=== PATIENT | female | born 1970 | race Caucasian/White ===

== ENCOUNTER → 2016-10-10 | Outpatient (CLI) | payer OTHER ==
[2016-10-10 16:20] LABS: Basophils % (A) 1 %; CH 28.8; CHCM 32.7; Eosinophils # (A) 0.2 k/uL (0-0.7); Eosinophils % (A) 2 %; HCT 44.5 % (34.0-46.0); HDW 2.68; HGB 14.3 gm/dL (11.4-16.0); Luc # (Auto) 0.12; Luc % (Auto) 1; Lymphocytes # (A) 2.4 k/uL (1.0-4.8); Lymphocytes % (A) 26 %; MCH 28.5 pg (25.0-35.0); MCHC 32.2 g/dL (31.0-37.0); MCV 88.6 fL (80.0-100.0); Mean Platelet Volume 8.1; Monocytes # (A) 0.4 k/uL (0-1.0); Monocytes % (A) 4 %; Neutrophils # (A) 6.2 k/uL (1.3-7.7); Neutrophils % (A) 67 %; RBC 5.02 m/uL (3.80-5.40); RDW 14.1 % (11.5-15.5); WBC 9.2 k/uL (3.8-10.6); WBC (Perox) 9.37
== END | disposition home or self-care (01) ==
LOC: LABWHC1 15:49
PROVIDERS: ATTEND Orthopaedic Surgery
DX: Z01.812 Encounter for preprocedural laboratory examination (principal); M75.01 Adhesive capsulitis of right shoulder
CPT/HCPCS: 36415; 85025

== ENCOUNTER 2016-10-25 09:22 | Day surgery (SDC) | payer BC, OTHER ==
[2016-10-22 15:11] VITALS: BMI 43.0
--- NOTE | 2016-10-24 17:12 | HP ---
DATE OF ADMISSION: CHIEF COMPLAINT: Right shoulder pain and stiffness. 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 She denies any specific injury. She is having diffuse pain along with significant weakness and stiffness. She is having night symptoms. She has been taking Motrin with partial temporary relief. She has a history of left shoulder adhesive capsulitis. PAST MEDICAL HISTORY: Significant for hypertension and kidney stones. Past surgical history significant for left shoulder manipulation, cholecystectomy and section. FAMILY HISTORY: Significant for heart disease. SOCIAL HISTORY: Significant for previous tobacco use, however, she quit in 1992. CURRENT MEDICATIONS: Ibuprofen. SHE NOTES ALLERGIES TO REGLAN AND CODEINE. Sixteen-point review of systems otherwise reviewed and is noncontributory. On examination, the patient is approximately 5 foot 7, 276 pounds of endomorphic habitus. HEENT exam is nonfocal. Neck is supple. On examination of her right shoulder, she is tender about the anterior subacromial space. She has moderate subacromial crepitus. Active range of motion, forward elevation of 115 degrees, external rotation with arm at side 25 degrees, internal rotation to L5. Passively I am able to forward elevate the right shoulder to 135, motor strength is 5-/5 for external rotation with the arm at the side and 5/5 for abduction. Impingement, Neer test are positive. Her distal neurovascular exam otherwise appears be intact in the right upper extremity. X-rays of the right shoulder obtained in the office to include AP and scapular outlet view show type II acromion with maintained humeral head to acromial distance. IMPRESSION: 1. Right shoulder adhesive capsulitis. 2. Increased body mass index. RECOMMENDATIONS: I talked to the patient regarding her treatment options. At this point, she opts to proceed with manipulation under anesthesia with a subacromial cortisone injection. We will likely perform that as an outpatient procedure utilizing IV sedation. The risks and benefits are discussed at length in layman's terms.
[~2016-10-25 09:22] MED LIST: CLINDAMYCIN 900 MG in DEXTROSE 5% IN WATER 50 ML IVPB ONE; DEXAMETHASONE SOD PHOSPHATE 10 MG/ML 1 ML VIAL IV ONE; LACTATED RINGERS 1,000 ML IV SCH; MIDAZOLAM 2 MG/2 ML VIAL IV PRN; SCOPOLAMINE 1.5MG/72HR PATCH TRANSDERM ONE
[2016-10-25 09:43] VITALS: TEMP 97.9
[2016-10-25] MEDS: ONDANSETRON 4 MG/2 ML VIAL IVP ONE ×2 (09:56→11:37)
[2016-10-25] MEDS ORDERED: PROPOFOL 10 MG/ML 20 ML VIAL IV ONE (11:13)
[2016-10-25] MEDS ORDERED: LIDOCAINE 1% INJ 10MG/ML (20 ML MDV) ONE (11:13)
[2016-10-25] MEDS ORDERED: BUPIVACAIN-EPI 0.25%-1:200,000 30 ML VIAL INTRAARTIC ONE (11:15)
[2016-10-25] MEDS ORDERED: methylPREDNISolone ACETATE 80 MG/ML 1 ML VIAL MISCELLANE ONE (11:15)
[2016-10-25] MEDS ORDERED: fentaNYL (PF) 50 MCG/ML 2 ML AMP IV ONE ×2 (11:28)
[2016-10-25] MEDS: HYDROmorphone 1 MG/ML 1 ML SYRINGE IVP PRN ×3 (11:28→12:05)
[2016-10-25] MEDS ORDERED: MIDAZOLAM 2 MG/2 ML VIAL IVP ONE ×2 (11:29)
[2016-10-25] MEDS: MEPERIDINE 50 MG/ML SYRINGE IVP ONE ×2 (11:30→11:38)
--- NOTE | 2016-10-25 11:39 | P.OP ---
Date of Procedure: 10/25/16 Preoperative Diagnosis: Right shoulder adhesive capsulitis Postoperative Diagnosis: Same Procedure(s) Performed: Manipulation under anesthesia right shoulder with subacromial cortisone injection Anesthesia: MAC Surgeon: Skyler Lopez Estimated Blood Loss (ml): 0 Pathology: none sent Condition: stable Disposition: PACU Indications for Procedure: The patient's a 46-year-old female presents with progressive right shoulder pain and stiffness despite conservative measures. She has a history of left shoulder adhesive capsulitis. A discussion of the risks and benefits of manipulation under anesthesia with a subacromial cortisone injection was made with patient. She opted to proceed with with this. Specific risks of this procedure to include fracture, dislocation, tendon rupture, possible recurrence of stiffness and need for subsequent procedures was discussed. Informed consent was obtained. Operative Findings: Significant adhesions Description of Procedure: The patient was brought to the recovery room, and after induction of IV sedation I then manipulated her right shoulder. Initially with her arm at her side obtaining full external rotation. Moderate adhesions were encountered. I then obtained full forward elevation. Again there were moderate adhesions. I felt I had adequate release at this point. The posterior shoulder was prepped with ChloraPrep. 80 mg of Depo-Medrol along with 5 mL of quarter percent plain Marcaine was injected to the posterior subacromial space. The patient was then monitored until fully awake. No complications were incurred.
[2016-10-25] MEDS ORDERED: KETOROLAC 30 MG/ML 1 ML VIAL IVP ONE (11:50)
[2016-10-25] MEDS ORDERED: HYDROmorphone 1 MG/ML 1 ML SYRINGE IVP ONE ×2 (12:24→12:29)
[2016-10-25 14:29] VITALS: BP 148/83; PULSE 85; RESP 18
== END 2016-10-25 15:39 | disposition home or self-care (01) ==
LOC: OR 09:22
PROVIDERS: ATTEND Orthopaedic Surgery
DX: M75.01 Adhesive capsulitis of right shoulder (principal); I10 Essential (primary) hypertension; Z79.899 Other long term (current) drug therapy; Z88.5 Allergy status to narcotic agent; Z88.0 Allergy status to penicillin; Z88.8 Allergy status to other drugs, medicaments and biological substances
CPT/HCPCS: 23700; 81025; 20610; J2250; J1040; J1100; J2175; J2405; J2001; J3010; J1885; J1170; J2704

== ENCOUNTER 2017-09-11 16:09 | Emergency (ER) | payer OTHER ==
[2017-09-11] MEDS ORDERED: ONDANSETRON ODT 8 MG TAB.RAPDIS PO STA (16:45)
[2017-09-11] MEDS ORDERED: SODIUM CHLORIDE 0.9% 1,000 ML IV STA (16:45)
[2017-09-11] MEDS ORDERED: HYDROmorphone 1 MG/ML 1 ML SYRINGE IVP STA (16:45)
--- NOTE | 2017-09-11 16:49 | ED ---
General Adult HPI - General Chief complaint: Abdominal Pain Stated complaint: Abd Pain Time Seen by Provider: 09/11/17 16:38 Source: patient, RN notes reviewed Mode of arrival: ambulatory Limitations: no limitations - History of Present Illness Initial comments: Patient 46-year-old female who presents emergency room today with chief complaint of symptoms of diarrhea with abdominal pain. Patient does admit that she's had diarrhea for the last one. States that she had antibiotics of ciprofloxacin and Keflex for a urinary tract infection. She states the symptoms of UTI have resolved but she's had diarrhea since taking these antibiotics. She states her sister was recently diagnosed with C. diff. She states she did see her family doctor today and was prescribed Flagyl. She states she began having abdominal discomfort earlier today as well. She states located in the left upper quadrant. Does admit history of pancreatitis. He states that they're unsure the cause of the paper tenderness in the past. She states she has had a cholecystectomy. She states this does feel different than typical pancreatitis that she's had. She doesn't that she's felt nauseated. He was pain on the right lower side of the belly. States stool somewhat formed at this time as she has been taking Imodium. States she was able give her doctor a stool sample. Denies any other complaints or symptoms. Patient denies any recent fever, chills, shortness of breath, chest pain, numbness or tingling , dysuria or hematuria, constipation, headaches or visual changes, or any other complaints. - Related Data Home Medications Medication Instructions Recorded Confirmed Cholecalciferol [Vitamin D3] 1,000 unit PO DAILY 04/30/15 09/11/17 Calcium Carbonate/Vitamin D3 1 tab PO BID 09/11/17 09/11/17 [Calcium 600-Vit D3 400 Caplet] Enalapril [Vasotec] 10 mg PO DAILY 09/11/17 09/11/17 Previous Rx's Medication Instructions Recorded Ondansetron Odt [Zofran ODT] 4 mg PO Q8HR PRN #20 tab 09/11/17 Allergies Allergy/AdvReac Type Severity Reaction Status Date / Time amoxicillin Allergy Itching Verified 09/11/17 16:56 ciprofloxacin [From Cipro] Allergy Swelling Verified 09/11/17 16:56 codeine Allergy Rash/Hives Verified 09/11/17 16:56 metoclopramide HCl Allergy Rash/Hives Verified 09/11/17 16:56 [[facility] [place] Review of Systems ROS Statement: Those systems with pertinent positive or pertinent negative responses have been documented in the HPI. ROS Other: All systems not noted in ROS Statement are negative. Past Medical History Past Medical History: Hypertension Additional Past Medical History / Comment(s): pancreatitis. KIDNEY STONES History of Any Multi-Drug Resistant Organisms: None Reported Past Surgical History: Section, Cholecystectomy, Orthopedic Surgery, Uterine Ablation Additional Past Surgical History / Comment(s): KIDNEY STONES REMOVED X4. LT SHOULDER MANIPULATION Past Anesthesia/Blood Transfusion Reactions: Motion Sickness, Postoperative Nausea & Vomiting (PONV) Past Psychological History: No Psychological Hx Reported Smoking Status: Former smoker Past Alcohol Use History: None Reported Past Drug Use History: None Reported - Past Family History Sister(s) Family Medical History: Cancer General Exam - General Exam Comments Initial Comments: General: The patient is awake and alert, in no distress, and does not appear acutely ill. Eye: Pupils are equal, round and reactive to light, extra-ocular movements are intact. No nystagmus. There is normal conjunctiva bilaterally. No signs of icterus. Ears, nose, mouth and throat: There are moist mucous membranes and no oral lesions. Neck: The neck is supple, there is no tenderness or JVD. Cardiovascular: There is a regular rate and rhythm. No murmur, rub or gallop is appreciated. Respiratory: Lungs are clear to auscultation, respirations are non-labored, breath sounds are equal. No wheezes, stridor, rales, or rhonchi. Gastrointestinal: Soft, non-distended, non-tender abdomen without masses or organomegaly noted. There is no rebound or guarding present. No CVA tenderness. Bowel sounds are unremarkable. Musculoskeletal: Normal ROM, no tenderness. Strength 5/5. Sensation intact. Pulses equal bilaterally 2+. Neurological: A&O x 3. CN II-XII intact, There are no obvious motor or sensory deficits. Coordination appears grossly intact. Speech is normal. Skin: Skin is warm and dry and no rashes or lesions are noted. Psychiatric: Cooperative, appropriate mood & affect, normal judgment. Limitations: no limitations Course Vital Signs 09/11/17 16:15 Temperature 98.4 F Pulse Rate 82 Respiratory 16 Rate Blood Pressure 191/82 O2 Sat by Pulse 95 Oximetry Medical Decision Making - Medical Decision Making Patient's CT of the abdomen reviewed and is negative. Patient's labs been reviewed are negative. Results were discussed with the patient. She does have C. diff test ending with her family doctor unable to give us a sample here in emergency room. Patient did start Flagyl earlier today from the family doctor. Patient tolerating fluids. Patient will be discharged from nausea with patient use. Advised to increase appetite with brat diet and make sure that she is eating with her antibiotic. Advised to follow-up family doctor return here to the emergency room symptoms increase worsen - Lab Data Result diagrams: 09/11/17 17:00 09/11/17 17:00 Lab Results 09/11/17 09/11/17 09/11/17 Range/Units 16:56 16:56 17:00 WBC (3.8-10.6) k/uL RBC (3.80-5.40) m/uL Hgb (11.4-16.0) gm/dL Hct (34.0-46.0) % MCV (80.0-100.0) fL MCH (25.0-35.0) pg MCHC (31.0-37.0) g/dL RDW (11.5-15.5) % Plt Count (150-450) k/uL Neutrophils % % Lymphocytes % % Monocytes % % Eosinophils % % Basophils % % Neutrophils # (1.3-7.7) k/uL Lymphocytes # (1.0-4.8) k/uL Monocytes # (0-1.0) k/uL Eosinophils # (0-0.7) k/uL Basophils # (0-0.2) k/uL Sodium 141 (137-145) mmol/L Potassium 3.7 (3.5-5.1) mmol/L Chloride 103 (98-107) mmol/L Carbon Dioxide 26 (22-30) mmol/L Anion Gap 12 mmol/L BUN 8 (7-17) mg/dL Creatinine 0.60 (0.52-1.04) mg/dL Est GFR (MDRD) Af Amer >60 (>60 ml/min/1.73 sqM) Est GFR (MDRD) Non-Af >60 (>60 ml/min/1.73 sqM) Glucose 111 H (74-99) mg/dL Calcium 9.4 (8.4-10.2) mg/dL Total Bilirubin 0.4 (0.2-1.3) mg/dL AST 22 (14-36) U/L ALT 38 (9-52) U/L Alkaline Phosphatase 65 (38-126) U/L Total Protein 7.1 (6.3-8.2) g/dL Albumin 4.1 (3.5-5.0) g/dL Amylase 38 (30-110) U/L Lipase 79 (23-300) U/L Urine Color Light Yellow Urine Appearance Clear (Clear) Urine pH 5.5 (5.0-8.0) Ur Specific [place] 1.003 (1.001-1.035) Urine Protein Negative (Negative) Urine Glucose (UA) Negative (Negative) Urine Ketones Negative (Negative) Urine Blood Negative (Negative) Urine Nitrite Negative (Negative) Urine Bilirubin Negative (Negative) Urine Urobilinogen <2.0 (<2.0) mg/dL Ur Leukocyte Esterase Negative (Negative) Urine HCG, Qual Not Detected (Not Detectd) 09/11/17 Range/Units 17:00 WBC 9.1 (3.8-10.6) k/uL RBC 4.81 (3.80-5.40) m/uL Hgb 13.6 (11.4-16.0) gm/dL Hct 42.6 (34.0-46.0) % MCV 88.4 (80.0-100.0) fL MCH 28.3 (25.0-35.0) pg MCHC 32.0 (31.0-37.0) g/dL RDW 15.5 (11.5-15.5) % Plt Count 176 (150-450) k/uL Neutrophils % 72 % Lymphocytes % 21 % Monocytes % 4 % Eosinophils % 2 % Basophils % 1 % Neutrophils # 6.6 (1.3-7.7) k/uL Lymphocytes # 1.9 (1.0-4.8) k/uL Monocytes # 0.4 (0-1.0) k/uL Eosinophils # 0.2 (0-0.7) k/uL Basophils # 0.0 (0-0.2) k/uL Sodium (137-145) mmol/L Potassium (3.5-5.1) mmol/L Chloride (98-107) mmol/L Carbon Dioxide (22-30) mmol/L Anion Gap mmol/L BUN (7-17) mg/dL Creatinine (0.52-1.04) mg/dL Est GFR (MDRD) Af Amer (>60 ml/min/1.73 sqM) Est GFR (MDRD) Non-Af (>60 ml/min/1.73 sqM) Glucose (74-99) mg/dL Calcium (8.4-10.2) mg/dL Total Bilirubin (0.2-1.3) mg/dL AST (14-36) U/L ALT (9-52) U/L Alkaline Phosphatase (38-126) U/L Total Protein (6.3-8.2) g/dL Albumin (3.5-5.0) g/dL Amylase (30-110) U/L Lipase (23-300) U/L Urine Color Urine Appearance (Clear) Urine pH (5.0-8.0) Ur Specific [place] (1.001-1.035) Urine Protein (Negative) Urine Glucose (UA) (Negative) Urine Ketones (Negative) Urine Blood (Negative) Urine Nitrite (Negative) Urine Bilirubin (Negative) Urine Urobilinogen (<2.0) mg/dL Ur Leukocyte Esterase (Negative) Urine HCG, Qual (Not Detectd) Disposition Clinical Impression: Acute diarrhea, Abdominal pain Disposition: HOME SELF-CARE Condition: Good Instructions: Abdominal Pain (ED) Additional Instructions: Please use medication as discussed. Please follow-up with family doctor in the next 2 days of symptoms have not improved. Please return to emergency room if the symptoms increase or worsen or for any other concerns. Prescriptions: Ondansetron Odt [Zofran ODT] 4 mg PO Q8HR PRN #20 tab PRN Reason: Nausea Referrals: Zain Mitchell MD [Primary Care Provider] - 1-2 days Time of Disposition: 19:16
[2017-09-11 17:05] LABS: Appearance,Urine Clear (Clear); Bilirubin,Urine Negative (Negative); Blood,Urine Negative (Negative); Color,Urine Light Yellow; Glucose,Urine (UA) Negative (Negative); Ketones,Urine Negative (Negative); Leukocyte Esterase,Urine Negative (Negative); Nitrite,Urine Negative (Negative); PH, Urine 5.5 (5.0-8.0); Protein,Urine Negative (Negative); Specific Gravity,Urine 1.003 (1.001-1.035); Urobilinogen,Urine <2.0 mg/dL (<2.0)
[2017-09-11 17:12] LABS: Basophils % (A) 1 %; Eosinophils # (A) 0.2 k/uL (0-0.7); Eosinophils % (A) 2 %; HCT 42.6 % (34.0-46.0); HGB 13.6 gm/dL (11.4-16.0); Lymphocytes # (A) 1.9 k/uL (1.0-4.8); Lymphocytes % (A) 21 %; MCH 28.3 pg (25.0-35.0); MCV 88.4 fL (80.0-100.0); Mean Platelet Volume 9.3; Monocytes # (A) 0.4 k/uL (0-1.0); Monocytes % (A) 4 %; Neutrophils # (A) 6.6 k/uL (1.3-7.7); Neutrophils % (A) 72 %; Platelet Count 176 k/uL (150-450); RBC 4.81 m/uL (3.80-5.40); RDW 15.5 % (11.5-15.5); WBC 9.1 k/uL (3.8-10.6)
[2017-09-11 17:20] LABS: ALT 38 U/L (9-52); AST 22 U/L (14-36); Albumin 4.1 g/dL (3.5-5.0); Alkaline Phosphatase 65 U/L (38-126); Amylase 38 U/L (30-110); Anion Gap 12 mmol/L; Blood Urea Nitrogen 8 mg/dL (7-17); Calcium 9.4 mg/dL (8.4-10.2); Carbon Dioxide 26 mmol/L (22-30); Chloride 103 mmol/L (98-107); Glucose 111 mg/dL (74-99); Lipase 79 U/L (23-300); Potassium 3.7 mmol/L (3.5-5.1); Sodium 141 mmol/L (137-145); Total Bilirubin 0.4 mg/dL (0.2-1.3); Total Protein 7.1 g/dL (6.3-8.2)
[2017-09-11] MEDS ORDERED: RX INFO: IV CONTRAST WAS GIVEN 1 EACH MISC MISCELLANE PRN (17:39)
--- NOTE | 2017-09-11 17:45 | XR ---
EXAMINATION TYPE: XR KUB DATE OF EXAM: 09/11/2017 CLINICAL HISTORY: Pain and bloating with diarrhea for 1 month TECHNIQUE: 3 upright views of the abdomen and pelvis were obtained. COMPARISON: 04/30/2015 FINDINGS: Scattered gas is seen in non-distended small bowel loops. Gas and fecal material is seen in non-distended colon. There is no visceromegaly, pneumoperitoneum, pneumatosis, or abnormal calcif ication. The visualized lung bases and pleural spaces and cardiac silhouette are unremarkable, and t he osseous structures are intact. IMPRESSION: NO ACUTE RADIOGRAPHIC PROCESS.
--- NOTE | 2017-09-11 19:07 | CT ---
EXAMINATION TYPE: CT abdomen pelvis w con DATE OF EXAM: 09/11/2017 COMPARISON: 04/30/2015 HISTORY: Diarrhea x 1 month, generalized abdominal pain. CT DLP: 4166.00 mGycm. Automated exposure control for dose reduction was used. TECHNIQUE: Helical acquisition of images was performed from the lung bases through the pelvis. CONTRAST: Performed without Oral Contrast and with IV Contrast, patient injected with 100 mL of Omnip aque 300. FINDINGS: LUNG BASES: No significant abnormality is appreciated. LIVER/GB: No significant abnormality is appreciated. PANCREAS: No significant abnormality is seen. SPLEEN: No significant abnormality is seen. ADRENALS: No significant abnormality is seen. KIDNEYS: No significant abnormality is seen. Nonobstructing 2 mm calcification noted in the upper pole of the left kidney. Multifocal simple-appearing subcentimeter renal cysts are noted within the left kidney, with a domina nt 2.5 cm simple cyst in the lower pole left kidney. PERITONEAL CAVITY OF THE ABDOMEN AND PELVIS: No abnormal gas or fluid collections. EXTRAPERITONEAL SPACES OF THE ABDOMEN AND PELVIS: Negative. ABDOMINAL ADENOPATHY: None visualized REPRODUCTIVE ORGANS: No significant abnormality is seen URINARY BLADDER: No significant abnormality is seen. PELVIC ADENOPATHY: None visualized. OSSEOUS STRUCTURES: No significant abnormality is seen. BOWEL: No significant abnormality is seen. Specifically, the colon and the small bowel have normal a ppearance. VASCULATURE: Unremarkable. IMPRESSION: NO ACUTE PROCESS.
[2017-09-11] MEDS ORDERED: ONDANSETRON 4 MG/2 ML VIAL IVP STA (19:27)
[2017-09-11 19:40] VITALS: BP 125/56; PULSE 69; RESP 18; TEMP 98
== END 2017-09-11 19:39 | disposition home or self-care (01) ==
LOC: EC 16:09
DX: R19.7 Diarrhea, unspecified (principal); R11.0 Nausea; I10 Essential (primary) hypertension; Z87.442 Personal history of urinary calculi; Z90.49 Acquired absence of other specified parts of digestive tract; Z98.890 Other specified postprocedural states; Z87.19 Personal history of other diseases of the digestive system; Z87.891 Personal history of nicotine dependence; Z88.0 Allergy status to penicillin; Z88.1 Allergy status to other antibiotic agents; Z88.5 Allergy status to narcotic agent; Z88.8 Allergy status to other drugs, medicaments and biological substances; Z79.899 Other long term (current) drug therapy
CPT/HCPCS: 99284 ×2; 96374 ×2; 96375 ×2; 96361 ×3; 36415; 80053; 82150; 83690; 85025; 81003; 81025; 74000; 74177; J2405; J1170; Q9967

== ENCOUNTER 2018-03-24 11:14 | Emergency (ER) | payer OTHER ==
[2018-03-24 11:20] VITALS: TEMP 98.1
[2018-03-24] MEDS ORDERED: SODIUM CHLORIDE 0.9% 1,000 ML IV STA (11:37)
[2018-03-24] MEDS ORDERED: KETOROLAC 30 MG/ML 1 ML VIAL IVP STA (11:37)
--- NOTE | 2018-03-24 11:42 | ED ---
Chest Pain HPI - General Chief Complaint: Chest Pain Stated Complaint: chest pain Time Seen by Provider: 03/24/18 11:28 Source: patient, RN notes reviewed Mode of arrival: wheelchair Limitations: no limitations - History of Present Illness Initial Comments: This is a 47-year-old female with a history of hypertension is being treated with medication states she had the onset this morning of left-sided shoulder pain it radiates to the front of her chest. Its worse is 8 and 9/10 severity when at rest units 5-6/10. She states it occurred after she tried to reach for her cat and picked it up. She has no known history of heart or lung disease nonsmoker there is a family history of heart disease however. He voices no other complaints she's had no fevers chills cough or phlegm production. She is a nonsmoker MD Complaint: chest pain - Related Data Home Medications Medication Instructions Recorded Confirmed Cholecalciferol [Vitamin D3] 1,000 unit PO DAILY 04/30/15 03/24/18 Enalapril [Vasotec] 10 mg PO DAILY 09/11/17 03/24/18 Ibuprofen [Motrin Ib] 600 mg PO Q6H PRN 03/24/18 03/24/18 Allergies Allergy/AdvReac Type Severity Reaction Status Date / Time amoxicillin Allergy Itching Verified 03/24/18 11:37 ciprofloxacin [From Cipro] Allergy Swelling Verified 03/24/18 11:37 codeine Allergy Rash/Hives Verified 03/24/18 11:37 metoclopramide HCl Allergy Rash/Hives Verified 03/24/18 11:37 [From Reglan] Review of Systems ROS Statement: Those systems with pertinent positive or pertinent negative responses have been documented in the HPI. ROS Other: All systems not noted in ROS Statement are negative. EKG Findings - EKG Results: EKG: interpreted by ERMAncelmo, sinus rhythm (Sinus rhythm rate is 74. Interval 158 QRS duration 80 daily since QTC of 394/[address]-T wave changes.) Past Medical History Past Medical History: Hypertension Additional Past Medical History / Comment(s): pancreatitis. KIDNEY STONES History of Any Multi-Drug Resistant Organisms: None Reported Past Surgical History: Section, Cholecystectomy, Orthopedic Surgery, Uterine Ablation Additional Past Surgical History / Comment(s): KIDNEY STONES REMOVED X4. LT SHOULDER MANIPULATION Past Anesthesia/Blood Transfusion Reactions: Motion Sickness, Postoperative Nausea & Vomiting (PONV) Past Psychological History: No Psychological Hx Reported Smoking Status: Former smoker Past Alcohol Use History: None Reported Past Drug Use History: None Reported - Past Family History Sister(s) Family Medical History: Cancer General Exam - General Exam Comments Initial Comments: This is a well-developed well-nourished awake alert oriented 3 female Limitations: no limitations General appearance: alert, anxious Head exam: Present: atraumatic, normocephalic, normal inspection Eye exam: Present: normal appearance, PERRL, EOMI. Absent: scleral icterus, conjunctival injection, periorbital swelling ENT exam: Present: normal exam, mucous membranes moist Neck exam: Present: normal inspection. Absent: tenderness, meningismus, lymphadenopathy Respiratory exam: Present: normal lung sounds bilaterally, chest wall tenderness (Reproducible tenderness palpation along the left costal sternal margin and costochondral margin. No step-off or crepitation). Absent: respiratory distress, wheezes, rales, rhonchi, stridor Cardiovascular Exam: Present: regular rate, normal rhythm, normal heart sounds. Absent: systolic murmur, diastolic murmur, rubs, gallop, clicks GI/Abdominal exam: Present: soft, normal bowel sounds. Absent: distended, tenderness, guarding, rebound, rigid Extremities exam: Present: normal inspection, full ROM, normal capillary refill. Absent: tenderness, pedal edema, joint swelling, calf tenderness Back exam: Present: normal inspection, full ROM, tenderness, paraspinal tenderness (Response muscle tenderness on the left only reproducible to palpation also along the left rhomboid muscles.). Absent: CVA tenderness (R), CVA tenderness (L) Neurological exam: Present: alert, oriented X3, CN II-XII intact Psychiatric exam: Present: normal affect, normal mood Skin exam: Present: warm, dry, intact, normal color. Absent: rash Course Vital Signs 03/24/18 11:18 Temperature 98.1 F Pulse Rate 87 Respiratory 18 Rate Blood Pressure 139/84 O2 Sat by Pulse 99 Oximetry Disposition Referrals: Zain Mitchell MD [Primary Care Provider] - 1-2 days
[2018-03-24 11:59] LABS: Basophils % (A) 0 %; Eosinophils # (A) 0.2 k/uL (0-0.7); Eosinophils % (A) 2 %; HCT 43.6 % (34.0-46.0); HGB 14.4 gm/dL (11.4-16.0); Lymphocytes # (A) 1.4 k/uL (1.0-4.8); Lymphocytes % (A) 17 %; MCH 28.2 pg (25.0-35.0); MCHC 32.9 g/dL (31.0-37.0); MCV 85.6 fL (80.0-100.0); Mean Platelet Volume 8.3; Monocytes # (A) 0.3 k/uL (0-1.0); Monocytes % (A) 4 %; Neutrophils # (A) 6.5 k/uL (1.3-7.7); Neutrophils % (A) 77 %; Platelet Count 173 k/uL (150-450); RBC 5.09 m/uL (3.80-5.40); RDW 14.5 % (11.5-15.5); WBC 8.4 k/uL (3.8-10.6)
[2018-03-24 12:09] LABS: ALT 26 U/L (9-52); AST 20 U/L (14-36); Albumin 4.1 g/dL (3.5-5.0); Alkaline Phosphatase 73 U/L (38-126); Amylase 51 U/L (30-110); Anion Gap 13 mmol/L; Blood Urea Nitrogen 10 mg/dL (7-17); Calcium 9.6 mg/dL (8.4-10.2); Carbon Dioxide 22 mmol/L (22-30); Chloride 104 mmol/L (98-107); Glucose 128 mg/dL (74-99); Lipase 88 U/L (23-300); Magnesium 1.9 mg/dL (1.6-2.3); Potassium 4.4 mmol/L (3.5-5.1); Sodium 139 mmol/L (137-145); Total Bilirubin 0.4 mg/dL (0.2-1.3); Total Protein 7.1 g/dL (6.3-8.2)
[2018-03-24 12:11] LABS: D-Dimer 0.42 mg/L FEU (<0.60); INR 0.9 (<1.2); Partial Thromboplastin Time 22.9 sec (22.0-30.0); Prothrombin Time 9.4 sec (9.0-12.0)
--- NOTE | 2018-03-24 12:32 | XR ---
EXAMINATION TYPE: XR chest 2V DATE OF EXAM: 03/24/2018 COMPARISON: 04/30/2015 HISTORY: Left shoulder pain and chest pain TECHNIQUE: Frontal and lateral views of the chest are obtained. FINDINGS: There is no focal air space opacity, pleural effusion, or pneumothorax seen. The cardiac silhouette size is within normal limits. The osseous structures are intact. IMPRESSION: No acute cardiopulmonary process.
[2018-03-24 12:35] LABS: Creatine Kinase 25 U/L (30-135)
[2018-03-24 12:48] LABS: Creatine Kinase MB <0.2 ng/mL (0.0-2.4); Troponin I <0.012 ng/mL (0.000-0.034)
[2018-03-24 13:36] VITALS: BP 122/61; PULSE 69; RESP 16
== END 2018-03-24 15:15 | disposition home or self-care (01) ==
LOC: EC 11:14
DX: M94.0 Chondrocostal junction syndrome [Tietze] (principal); M62.838 Other muscle spasm; I10 Essential (primary) hypertension; Z87.891 Personal history of nicotine dependence; Z79.899 Other long term (current) drug therapy; Z88.0 Allergy status to penicillin; Z88.1 Allergy status to other antibiotic agents; Z88.5 Allergy status to narcotic agent; Z88.8 Allergy status to other drugs, medicaments and biological substances; Z98.890 Other specified postprocedural states; Z82.49 Family history of ischemic heart disease and other diseases of the circulatory system
CPT/HCPCS: 99285; 36415; 96374; 96375 ×2; 93005; 85379; 80053; 82150; 82550; 82553; 83690; 83735; 84484; 85025; 85610; 85730; 71046; J1885

== ENCOUNTER → 2020-04-19 | Outpatient (CLI) | payer OTHER ==
--- NOTE | 2020-04-19 11:44 | US ---
EXAMINATION TYPE: US extremity nonvasc mass LT DATE OF EXAM: 04/19/2020 COMPARISON: NONE CLINICAL HISTORY: R22.9 Soft tissue swelling. Palpable lump x 1 year on left anterior mid forearm. P atient states she thinks she hit the area and it has been there and sore since then. Area of concern scanned. Superficial echogenic nonvascular lesion visualized - 1.3 x 1.5 x 0.6 cm. Second area seen while scanning inferior to area of concern= 0.6 x 0.7 x 0.3 cm. IMPRESSION: 1. 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 A second adjacent area is present. Ot her etiologies including liposarcoma are not excluded. Consider MRI soft tissues with contrast for ad ditional evaluation.
== END | disposition home or self-care (01) ==
LOC: RADUSWWP 07:39
PROVIDERS: ATTEND Pediatrics
DX: R22.9 Localized swelling, mass and lump, unspecified (principal)

== ENCOUNTER → 2020-05-24 | Outpatient (CLI) | payer OTHER ==
--- NOTE | 2020-05-25 03:55 | MR ---
EXAMINATION TYPE: MR forearm LT wo/w con DATE OF EXAM: 05/24/2020 COMPARISON: None HISTORY: Lump on radial aspect of lt forearm x 1 year CONTRAST: Standard multiplanar, multisequence MRI departmental protocol utilizing 13.5 mL intravenous Gadavist gadolinium contrast. The muscle structures of the forearm appear intact. There is no evidence of soft tissue mass involvin g the vessels. Radius and ulna appear intact. I see no bony destructive process. There is a somewhat rounded 14 mm focus of increased signal on the T1 and T2 images in the subcutaneo us fat over the lateral aspect of the mid shaft of the radius. This is in the area marked as a palpab le mass. This appears to enhance slightly. There is a similar focus also on the medial aspect of the forearm in the subcutaneous fat that measures 9 x 4 mm. There is a third focus of similar signal ramon acteristics that measures 6 mm in the lateral aspect of the mid forearm that is more distal to the la rger lesion. These also show mild enhancement. There is a fourth similar lesion that is on the anterior lateral aspect of the forearm similar signal characteristics and measures 6 mm in diameter. IMPRESSION: Multiple subcutaneous small masses in the forearm show mild enhancement. These lie within the subcuta neous fat. 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
== END | disposition home or self-care (01) ==
LOC: RADMRIMAIN 10:32
PROVIDERS: ATTEND Physician Assistant
DX: R22.9 Localized swelling, mass and lump, unspecified (principal)
CPT/HCPCS: 73220; A9585

== ENCOUNTER 2021-02-24 06:24 | Emergency (ER) | payer OTHER ==
[2021-02-24 06:37] VITALS: RESP 18; TEMP 98.7
[2021-02-24] MEDS ORDERED: HYDROmorphone 1 MG/ML 1 ML SYRINGE IM STA (06:46)
--- NOTE | 2021-02-24 06:48 | ED ---
Fall HPI - General Chief Complaint: Fall Stated Complaint: Fall, Rib Pain Time Seen by Provider: 02/24/21 06:39 Source: patient, family Mode of arrival: wheelchair Limitations: no limitations - History of Present Illness Initial Comments: This a 50-year-old female presents emergency Department chief complaint of a fall. Patient states that she switch sides on her bed which she is not used to states that she went to roll her normal way did not realize that she was rolling out of bed. Patient holds the ground she fell onto her right side. Patient w indow right sided rib pain small abrasion to her right elbow and right knee pain. Patient is able to ambulate. Patient states her hurts to twist and bend and a deep breath does not feel short of breath at rest. No head injury no loss conscious. Denies any blood thinners. - Related Data Home Medications Medication Instructions Recorded Confirmed Cholecalciferol [Vitamin D3] 1,000 unit PO DAILY 04/30/15 03/24/18 Enalapril [Vasotec] 10 mg PO DAILY 09/11/17 03/24/18 Ibuprofen [Motrin Ib] 600 mg PO Q6H PRN 03/24/18 03/24/18 Previous Rx's Medication Instructions Recorded Ibuprofen [Motrin] 600 mg PO Q8HR PRN #20 tab 02/24/21 traMADol HCl [Ultram] 50 mg PO Q6H PRN #12 tab 02/24/21 Allergies Allergy/AdvReac Type Severity Reaction Status Date / Time amoxicillin Allergy Itching Verified 02/24/21 06:37 ciprofloxacin [From Cipro] Allergy Swelling Verified 02/24/21 06:37 codeine Allergy Rash/Hives Verified 02/24/21 06:37 metoclopramide HCl Allergy Rash/Hives Verified 02/24/21 06:37 [From Reglan] Review of Systems ROS Statement: Those systems with pertinent positive or pertinent negative responses have been documented in the HPI. ROS Other: All systems not noted in ROS Statement are negative. Past Medical History Past Medical History: Diabetes Mellitus, Hypertension Additional Past Medical History / Comment(s): pancreatitis. KIDNEY STONES History of Any Multi-Drug Resistant Organisms: None Reported Past Surgical History: Section, Cholecystectomy, Orthopedic Surgery, Uterine Ablation Additional Past Surgical History / Comment(s): KIDNEY STONES REMOVED X4. LT SHOULDER MANIPULATION Past Anesthesia/Blood Transfusion Reactions: Motion Sickness, Postoperative Nausea & Vomiting (PONV) Past Psychological History: No Psychological Hx Reported Smoking Status: Former smoker Past Alcohol Use History: None Reported Past Drug Use History: None Reported - Past Family History Sister(s) Family Medical History: Cancer General Exam Limitations: no limitations General appearance: alert, in no apparent distress Head exam: Present: atraumatic, normocephalic, normal inspection Eye exam: Present: normal appearance, PERRL, EOMI. Absent: scleral icterus, conjunctival injection, periorbital swelling Neck exam: Present: normal inspection, full ROM. Absent: tenderness, meningismus, lymphadenopathy Respiratory exam: Present: normal lung sounds bilaterally, chest wall tenderness (Moderate right sided rib tenderness). Absent: respiratory distress, wheezes, rales, rhonchi, stridor Cardiovascular Exam: Present: regular rate, normal rhythm, normal heart sounds. Absent: systolic murmur, diastolic murmur, rubs, gallop, clicks GI/Abdominal exam: Present: soft, normal bowel sounds. Absent: distended, tenderness, guarding, rebound, rigid Extremities exam: Present: other (Right knee there is some tenderness over the fibular head otherwise full range of motion DEFORMITY neurovascular intact no tenderness above or below right elbow full range of motion small abrasion noted) Back exam: Present: full ROM. Absent: tenderness, paraspinal tenderness, vertebral tenderness Neurological exam: Present: alert, oriented X3, CN II-XII intact, reflexes normal. Absent: motor sensory deficit Skin exam: Present: warm, dry, intact, normal color. Absent: rash Course Vital Signs 02/24/21 06:35 Temperature 98.7 F Pulse Rate 78 Respiratory 18 Rate Blood Pressure 152/70 O2 Sat by Pulse 98 Oximetry Medical Decision Making - Medical Decision Making X-rays were reviewed there are no acute fractures noted patient's pain is improved after pain medication provided. Patient discharged in stable condition return parameters were discussed. Disposition Clinical Impression: Fall, Contusion of rib on right side, Contusion of right knee, Abrasion of right elbow Disposition: HOME SELF-CARE Condition: Stable Instructions (If sedation given, give patient instructions): Rib Contusion (ED) Additional Instructions: Please return to the Emergency Department if symptoms worsen or any other concerns. Prescriptions: Ibuprofen [Motrin] 600 mg PO Q8HR PRN #20 tab PRN Reason: Pain traMADol HCl [Ultram] 50 mg PO Q6H PRN #12 tab PRN Reason: Pain Is patient prescribed a controlled substance at d/c from ED?: No Referrals: Zain Mitchell MD [Primary Care Provider] - 1-2 days Time of Disposition: 08:02
--- NOTE | 2021-02-24 07:52 | XR ---
Chest and right RIBS. HISTORY: Chest pain. COMPARISON: 03/24/2018. TECHNIQUE: AP view the chest and 4 views the right ribs were obtained. FINDINGS: The lungs are clear of consolidative, interstitial masslike [place]. There is no pleural effusion, pleural thickening or pneumothorax. The heart, pulmonary vasculature, mediastinum and hilum appear normal. The osseous structures are int act. The right ribs are intact with without evidence of fracture or focal intraosseous abnormality. IMPRESSION: No acute cardiopulmonary disease. Right ribs are normal.
--- NOTE | 2021-02-24 07:53 | XR ---
Right knee. HISTORY: Knee pain COMPARISON: None. TECHNIQUE: 3 views the right knee were obtained. FINDINGS: There is no fracture, dislocation, intraosseous or intra-articular abnormality. There is no radiopaqu e foreign body. There is no joint effusion. IMPRESSION: No significant abnormality seen.
[2021-02-24 08:17] VITALS: BP 119/62; PULSE 65
== END 2021-02-24 08:17 | disposition home or self-care (01) ==
LOC: EC 06:24
DX: S20.211A Contusion of right front wall of thorax, initial encounter (principal); S80.01XA Contusion of right knee, initial encounter; S50.311A Abrasion of right elbow, initial encounter; E11.9 Type 2 diabetes mellitus without complications; I10 Essential (primary) hypertension; W06.XXXA Fall from bed, initial encounter; Z88.0 Allergy status to penicillin; Z88.1 Allergy status to other antibiotic agents; Z88.8 Allergy status to other drugs, medicaments and biological substances; Z88.5 Allergy status to narcotic agent; Z79.899 Other long term (current) drug therapy; Z87.891 Personal history of nicotine dependence
CPT/HCPCS: 71101; 73562; 99283; 96372; J1170

== ENCOUNTER 2022-08-11 02:15 | Emergency (ER) | payer OTHER ==
[2022-08-11 02:23] VITALS: RESP 18; TEMP 98.1
[2022-08-11] MEDS ORDERED: SODIUM CHLORIDE 0.9% 1,000 ML IV STA (02:45)
[2022-08-11] MEDS ORDERED: MORPHINE SULFATE 4 MG/ML SYRINGE IV STA (02:45)
[2022-08-11] MEDS ORDERED: ONDANSETRON 4 MG/2 ML VIAL IVP STA (02:45)
[2022-08-11] MEDS ORDERED: PANTOPRAZOLE 40 MG/10 ML VIAL IVP STA (02:45)
[2022-08-11 03:19] LABS: Basophils % (A) 0 %; Eosinophils # (A) 0.5 k/uL (0-0.7); Eosinophils % (A) 4 %; HCT 40.7 % (34.0-46.0); HGB 13.6 gm/dL (11.4-16.0); Lymphocytes # (A) 1.7 k/uL (1.0-4.8); Lymphocytes % (A) 16 %; MCH 28.5 pg (25.0-35.0); MCHC 33.4 g/dL (31.0-37.0); MCV 85.4 fL (80.0-100.0); Mean Platelet Volume 10.5; Monocytes # (A) 0.4 k/uL (0-1.0); Monocytes % (A) 3 %; Neutrophils # (A) 8.1 k/uL (1.3-7.7); Neutrophils % (A) 75 %; Platelet Count 161 k/uL (150-450); RBC 4.77 m/uL (3.80-5.40); WBC 10.8 k/uL (3.8-10.6)
[2022-08-11 03:33] LABS: INR 0.9 (<1.2); Partial Thromboplastin Time 24.8 sec (22.0-30.0); Prothrombin Time 9.6 sec (9.0-12.0)
[2022-08-11 03:50] LABS: Appearance,Urine Clear (Clear); Bacteria,Urine Rare /hpf; Bilirubin,Urine Negative (Negative); Blood,Urine Small (Negative); Color,Urine Light Yellow; Glucose,Urine (UA) Negative (Negative); Ketones,Urine Negative (Negative); Leukocyte Esterase,Urine Trace (Negative); Mucus,Urine Rare /hpf; Nitrite,Urine Negative (Negative); Protein,Urine Negative (Negative); RBC,Urine 10 /hpf (0-5); Squamous Epithelial Cell,Urine 4 /hpf (0-4); Urobilinogen,Urine <2.0 mg/dL (<2.0); WBC,Urine 4 /hpf (0-5)
--- NOTE | 2022-08-11 04:08 | ED ---
General Adult HPI - General Chief complaint: Abdominal Pain Stated complaint: Abdominal Pain Time Seen by Provider: 08/11/22 02:35 Source: family, RN notes reviewed, old records reviewed Mode of arrival: ambulatory Limitations: no limitations - History of Present Illness Initial comments: Patient is a 51-year-old female with past medical history remarkable for diabetes, hypertension, kidney stones who presents emergency Department complaining of epigastric abdominal discomfort as well as right-sided flank pain. It started earlier today. States is progressively got worse. Somewhat reminds her of her kidney stone pain that she has had previously. Endorses nausea but no emesis. Denies diarrhea. Denies chest pain or shortness of breath. His no other acute complaints at this time. Denies any dysuria or hematuria. Denies any vaginal discharge or bleeding. Did recently receive a colonoscopy on Friday that was uncomplicated. Is uncertain if this is what is causing her concerning to her symptoms at this time. Presents emergency department for further evaluation. Does have a history of a cholecystectomy. - Related Data Home Medications Medication Instructions Recorded Confirmed Cholecalciferol [Vitamin D3] 1,000 unit PO DAILY 04/30/15 03/24/18 Enalapril [Vasotec] 10 mg PO DAILY 09/11/17 03/24/18 Ibuprofen [Motrin Ib] 600 mg PO Q6H PRN 03/24/18 03/24/18 Previous Rx's Medication Instructions Recorded Ibuprofen [Motrin] 600 mg PO Q8HR PRN #20 tab 02/24/21 Ibuprofen [Motrin] 600 mg PO Q8HR PRN #20 tab 02/24/21 traMADol HCl [Ultram] 50 mg PO Q6H PRN #12 tab 02/24/21 traMADol HCl [Ultram] 50 mg PO Q6H PRN #12 tab 02/24/21 Famotidine [Pepcid] 20 mg PO DAILY 7 Days #7 tablet 08/11/22 HYDROcodone/APAP 5-325MG [[place] 1 tab PO Q6HR PRN 3 Days #12 tab 08/11/22 5-325] Ondansetron Odt [Zofran Odt] 4 mg PO Q8HR PRN 2 Days #6 tab 08/11/22 Allergies Allergy/AdvReac Type Severity Reaction Status Date / Time amoxicillin Allergy Itching Verified 08/11/22 02:23 ciprofloxacin [From Cipro] Allergy Swelling Verified 08/11/22 02:23 codeine Allergy Rash/Hives Verified 08/11/22 02:23 metoclopramide HCl Allergy Rash/Hives Verified 08/11/22 02:23 [From Reglan] Review of Systems ROS Statement: Those systems with pertinent positive or pertinent negative responses have been documented in the HPI. Review of Systems: CONST: Denies fever EYES: Denies blurry vision ENT: Denies nasal congestion C/V: Denies Chest pain RESP: Denies shortness of breath GI: Endorses abdominal pain : Denies dysuria SKIN: Denies rash. MSK: Denies joint pain. NEURO: Denies headache ROS Other: All systems not noted in ROS Statement are negative. Past Medical History Past Medical History: Diabetes Mellitus, Hypertension Additional Past Medical History / Comment(s): pancreatitis. KIDNEY STONES History of Any Multi-Drug Resistant Organisms: None Reported Past Surgical History: Section, Cholecystectomy, Orthopedic Surgery, Uterine Ablation Additional Past Surgical History / Comment(s): KIDNEY STONES REMOVED X4. LT SHOULDER MANIPULATION Past Anesthesia/Blood Transfusion Reactions: Motion Sickness, Postoperative Nausea & Vomiting (PONV) Past Psychological History: No Psychological Hx Reported Smoking Status: Former smoker Past Alcohol Use History: None Reported Past Drug Use History: None Reported - Past Family History Sister(s) Family Medical History: Cancer General Exam - General Exam Comments Initial Comments: General: Appears in no acute distress. HEAD: Normal with no signs of head trauma. EYES: PERRLA, EOMI, conjunctiva normal, no discharge. ENT: Hearing grossly intact, normal oropharynx. RESPIRATORY: Clear breath sounds bilaterally. No wheezes, rales, or rhonchi. C/V: Regular rate and rhythm. S1 and S2 auscultated, no edema, peripheral pulses 2+ and intact throughout ABD: Abdomen is soft, nondistended. Tender to palpation in the epigastric region as well as over the right flank towards the right lower quadrant. No guarding. No peritoneal signs. No rebound tenderness. EXT: Normal range of motion, no obvious deformity SKIN: No rashes or lesions observed on exposed skin. NEURO: Alert and oriented 4. Limitations: no limitations Course Vital Signs 08/11/22 08/11/22 02:21 05:02 Temperature 98.1 F 98.1 F Pulse Rate 73 67 Respiratory 18 18 Rate Blood Pressure 187/79 140/75 O2 Sat by Pulse 100 99 Oximetry Medical Decision Making - Medical Decision Making Based on the patient's presentation and physical exam, I'm concerned for acute i ntra-abdominal process at this time for her current symptoms. Cannot rule out atypical ACS presentation. Therefore we will obtain screening EKG and troponin addition to abdominal laboratory studies. Urinalysis also be obtained. We will obtain CT imaging of the abdomen and pelvis as well. She was in agreement this plan. She will be symptomatically treated with IV fluids, Zofran, pain medicati ons. Vital signs within acceptable limits. EKG showed no signs of acute ischemia. Chest x-ray as interpreted by myself revealed no acute cardiopulmonary process. No pneumothorax, infiltrate, bony traumatic injury. Laboratory studies were delayed, however did return remarkable for a mild leukocytosis of 10.8 which could be reactive. Lactic acid is within acceptable limits. Troponin undetectable. Pancreatic enzymes within acceptable limits. Urinalysis shows blood but no other findings. Remainder the labs are within acceptable limits.CT imaging is interpreted by myself reveals multiple bilateral renal calculi that are nonobstructing intrarenal. No obvious calculi seen within the ureters. No other obvious signs of infection or cause for her pain. No evidence of injury from the colonoscopy. No intra-abdominal free air. I did update the patient. She expressed understanding and agree currently have no clear etiology for her symptoms. I can't speculate that maybe she has an ulcer but cannot definitively say but do recommend that she follow up to obtain EGD imaging. She was in agreement this plan. She'll be given a GI cocktail, as well as prescription for pain medications and acid reflux medications. Strict return precautions were discussed. She was in agreement with this plan. I will provide the patient with a prescription for [place] 5, Pepcid, Zofran ODT. I instructed the patient to follow up with their PCP in the next 1-3 days. I provided contact information for follow up with Dr. Rae. I explained that the patient should return to the emergency department if they experience any worsening symptoms. Strict return precautions were discussed with the patient. The patient expressed understanding of these instructions. I answered all qu estions that the patient had. The patient was discharged home in good condition with their prescriptions and follow up information. - Lab Data Result diagrams: 08/11/22 03:03 08/11/22 04:11 Lab Results 08/11/22 08/11/22 08/11/22 Range/Units 03:03 03:03 03:03 WBC 10.8 H (3.8-10.6) k/uL RBC 4.77 (3.80-5.40) m/uL Hgb 13.6 (11.4-16.0) gm/dL Hct 40.7 (34.0-46.0) % MCV 85.4 (80.0-100.0) fL MCH 28.5 (25.0-35.0) pg MCHC 33.4 (31.0-37.0) g/dL RDW 14.0 (11.5-15.5) % Plt Count 161 (150-450) k/uL MPV 10.5 Neutrophils % 75 % Lymphocytes % 16 % Monocytes % 3 % Eosinophils % 4 % Basophils % 0 % Neutrophils # 8.1 H (1.3-7.7) k/uL Lymphocytes # 1.7 (1.0-4.8) k/uL Monocytes # 0.4 (0-1.0) k/uL Eosinophils # 0.5 (0-0.7) k/uL Basophils # 0.0 (0-0.2) k/uL PT 9.6 (9.0-12.0) sec INR 0.9 (<1.2) APTT 24.8 (22.0-30.0) sec Sodium (137-145) mmol/L Potassium (3.5-5.1) mmol/L Chloride (98-107) mmol/L Carbon Dioxide (22-30) mmol/L Anion Gap mmol/L BUN (7-17) mg/dL Creatinine (0.52-1.04) mg/dL Est GFR (CKD-EPI)AfAm (>60 ml/min/1.73 sqM) Est GFR (CKD-EPI)NonAf (>60 ml/min/1.73 sqM) Glucose (74-99) mg/dL Plasma Lactic Acid [place] 1.7 (0.7-2.0) mmol/L Calcium (8.4-10.2) mg/dL Total Bilirubin (0.2-1.3) mg/dL AST (14-36) U/L ALT (4-34) U/L Alkaline Phosphatase (38-126) U/L Troponin I (0.000-0.034) ng/mL Total Protein (6.3-8.2) g/dL Albumin (3.5-5.0) g/dL Amylase (30-110) U/L Lipase (23-300) U/L Urine Color Urine Appearance (Clear) Urine pH (5.0-8.0) Ur Specific [place] (1.001-1.035) Urine Protein (Negative) Urine Glucose (UA) (Negative) Urine Ketones (Negative) Urine Blood (Negative) Urine Nitrite (Negative) Urine Bilirubin (Negative) Urine Urobilinogen (<2.0) mg/dL Ur Leukocyte Esterase (Negative) Urine RBC (0-5) /hpf Urine WBC (0-5) /hpf Ur Squamous Epith Cells (0-4) /hpf Urine Bacteria (None) /hpf Urine Mucus (None) /hpf 08/11/22 08/11/22 08/11/22 Range/Units 03:03 03:31 04:11 WBC (3.8-10.6) k/uL RBC (3.80-5.40) m/uL Hgb (11.4-16.0) gm/dL Hct (34.0-46.0) % MCV (80.0-100.0) fL MCH (25.0-35.0) pg MCHC (31.0-37.0) g/dL RDW (11.5-15.5) % Plt Count (150-450) k/uL MPV Neutrophils % % Lymphocytes % % Monocytes % % Eosinophils % % Basophils % % Neutrophils # (1.3-7.7) k/uL Lymphocytes # (1.0-4.8) k/uL Monocytes # (0-1.0) k/uL Eosinophils # (0-0.7) k/uL Basophils # (0-0.2) k/uL PT (9.0-12.0) sec INR (<1.2) APTT (22.0-30.0) sec Sodium 138 (137-145) mmol/L Potassium 5.0 (3.5-5.1) mmol/L Chloride 107 (98-107) mmol/L Carbon Dioxide 28 (22-30) mmol/L Anion Gap 3 mmol/L BUN 14 (7-17) mg/dL Creatinine 0.72 (0.52-1.04) mg/dL Est GFR (CKD-EPI)AfAm >90 (>60 ml/min/1.73 sqM) Est GFR (CKD-EPI)NonAf >90 (>60 ml/min/1.73 sqM) Glucose 126 H (74-99) mg/dL Plasma Lactic Acid [place] (0.7-2.0) mmol/L Calcium 8.9 (8.4-10.2) mg/dL Total Bilirubin 0.6 (0.2-1.3) mg/dL AST 35 (14-36) U/L ALT 32 (4-34) U/L Alkaline Phosphatase 54 (38-126) U/L Troponin I <0.012 (0.000-0.034) ng/mL Total Protein 6.7 (6.3-8.2) g/dL Albumin 3.8 (3.5-5.0) g/dL Amylase 39 (30-110) U/L Lipase 204 (23-300) U/L Urine Color Light Yellow Urine Appearance Clear (Clear) Urine pH 6.0 (5.0-8.0) Ur Specific [place] 1.010 (1.001-1.035) Urine Protein Negative (Negative) Urine Glucose (UA) Negative (Negative) Urine Ketones Negative (Negative) Urine Blood Small H (Negative) Urine Nitrite Negative (Negative) Urine Bilirubin Negative (Negative) Urine Urobilinogen <2.0 (<2.0) mg/dL Ur Leukocyte Esterase Trace H (Negative) Urine RBC 10 H (0-5) /hpf Urine WBC 4 (0-5) /hpf Ur Squamous Epith Cells 4 (0-4) /hpf Urine Bacteria Rare H (None) /hpf Urine Mucus Rare H (None) /hpf - EKG Data -: EKG Interpreted by Me EKG Comments: 12-lead Electrocardiogram Interpretation Note EKG was reviewed and interpreted by myself. 12-lead ECG performed at 0252 is interpreted by me as revealing normal sinus rhythm at a rate of 69 beats per minute. [place] is normal. PA interval is 161 ms, QRS duration is 99 ms, QTc is 424 ms.. There were no ST or T wave abnormalities to suggest myocardial ischemia or injury. R wave progression across the precordium was satisfactory. By my interpretation this EKG is non-diagnostic for acute ischemia. When compared with EKG from March 2018, no significant change. Disposition Clinical Impression: Abdominal pain of unknown cause Disposition: HOME SELF-CARE Condition: Good Instructions (If sedation given, give patient instructions): Abdominal Pain (ED) Prescriptions: HYDROcodone/APAP 5-325MG [[place] 5-325] 1 tab PO Q6HR PRN 3 Days #12 tab PRN Reason: Pain Famotidine [Pepcid] 20 mg PO DAILY 7 Days #7 tablet Ondansetron Odt [Zofran Odt] 4 mg PO Q8HR PRN 2 Days #6 tab PRN Reason: Nausea Is patient prescribed a controlled substance at d/c from ED?: Yes When asked, does pt state using other controlled substances?: No If prescribed controlled substance>3 days was MAPS reviewed?: Prescribed <3 Days If opioid is for acute pain is fill amount 7 days or less?: Yes If Rx opioid, was Start Talking consent form obtained?: Yes Referrals: Zain Mitchell MD [Primary Care Provider] - 1-2 days Becky Rae MD [STAFF PHYSICIAN] - 1-2 days Time of Disposition: 05:50
[2022-08-11 04:27] LABS: ALT 32 U/L (4-34); African American GFR (CKD) >90 (>60 ml/min/1.73 sqM); Amylase 39 U/L (30-110); Anion Gap 3 mmol/L; Blood Urea Nitrogen 14 mg/dL (7-17); Calcium 8.9 mg/dL (8.4-10.2); Carbon Dioxide 28 mmol/L (22-30); Chloride 107 mmol/L (98-107); Glucose 126 mg/dL (74-99); Lipase 204 U/L (23-300); Non-African American GFR(CKD) >90 (>60 ml/min/1.73 sqM); Sodium 138 mmol/L (137-145); Total Bilirubin 0.6 mg/dL (0.2-1.3)
[2022-08-11 05:05] LABS: AST 35 U/L (14-36); Albumin 3.8 g/dL (3.5-5.0); Alkaline Phosphatase 54 U/L (38-126); Total Protein 6.7 g/dL (6.3-8.2)
--- NOTE | 2022-08-11 05:34 | XR ---
EXAMINATION TYPE: XR chest 2V DATE OF EXAM: 08/11/2022 COMPARISON: 02/24/2021 HISTORY: Abdominal pain. TECHNIQUE: 2 view FINDINGS: Heart and mediastinum are normal. Lungs are clear. Diaphragm is normal. Bony thorax is inta ct. IMPRESSION: Normal chest. No change.
--- NOTE | 2022-08-11 05:40 | CT ---
EXAMINATION TYPE: CT abdomen pelvis wo/w con DATE OF EXAM: 08/11/2022 COMPARISON: 09/11/2017 HISTORY: Abd pain CT DLP: mGycm Automated exposure control for dose reduction was used. CONTRAST: Performed with IV Contrast, patient injected with 100 mL of Isovue 300. The lung bases are clear. No pleural effusion. Heart size is normal. No pericardial effusion. Liver s pleen and stomach pancreas appear intact. The bile ducts are not dilated. There are clips from cholec ystectomy. There is no adrenal mass. Kidneys have normal size and contour. No hydronephrosis. There are several calculi in the left kidney that measure up to 1 cm. There is a 1 mm calculus upper pole right kidney. There is 2 cm cortical cyst lower pole left kidney. No evidence of ureteral calculus. Ureters are no t dilated. No retroperitoneal adenopathy. Appendix appears normal. Bladder distends smoothly. No ingu inal hernia. No free fluid in the pelvis. No evidence of a pelvic mass. The lumbar vertebrae have normal alignment. Posterior elements are intact. No compression fracture or bony pelvis is intact. The hip joints are intact. There is no mesenteric edema. No ascites or free air. No sign of a bowel obstruction. IMPRESSION: Multiple bilateral nonobstructing renal calculi. Calculi increased compared to the old exam. Normal a ppendix.
[2022-08-11] MEDS ORDERED: MORPHINE SULFATE 4 MG/ML SYRINGE IVP STA (06:04)
[2022-08-11] MEDS ORDERED: MAG HYDROX/AL HYDROX/SIMETH 30 ML, HYOSCYAMINE ELIXIR 10 ML, LIDOCAINE VISCOUS 2% 10 ML PO STA ×3 (06:04)
[2022-08-11 06:26] VITALS: BP 144/79; PULSE 75
== END 2022-08-11 06:27 | disposition home or self-care (01) ==
LOC: EC 02:15
DX: R10.13 Epigastric pain (principal); E11.9 Type 2 diabetes mellitus without complications; I10 Essential (primary) hypertension; Z87.891 Personal history of nicotine dependence; Z79.811 Long term (current) use of aromatase inhibitors; Z88.0 Allergy status to penicillin; Z88.1 Allergy status to other antibiotic agents; Z88.5 Allergy status to narcotic agent; Z88.8 Allergy status to other drugs, medicaments and biological substances
CPT/HCPCS: 99285; 96374; 96375 ×2; 96376; 36415; 93005; 80053; 82150; 83605; 83690; 84484; 85025; 85610; 85730; 81001; 71046; 74178; J2270; J2405; C9113; Q9967

== ENCOUNTER 2024-09-09 21:57 | Emergency (ER) | payer OTHER ==
[2024-09-09 22:14] VITALS: RESP 18; TEMP 98.3
--- NOTE | 2024-09-09 22:33 | XR ---
EXAMINATION TYPE: XR chest 2V DATE OF EXAM: 09/09/2024 10:29 PM COMPARISON: Chest x-ray August 11, 2022 CLINICAL INDICATION: Female, 53 years old with history of Chest Pain, TECHNIQUE: Frontal and lateral views of the chest are obtained. FINDINGS: There is no focal air space opacity, pleural effusion, or pneumothorax seen. The cardiac silhouette size is stable and within normal limits. Cholecystectomy clips are redemonstrated. The o sseous structures are intact. IMPRESSION: No acute process. No significant change from prior. [facility], , 09/09/2024 10:30 PM
--- NOTE | 2024-09-10 00:23 | ED ---
Chest Pain HPI - General Chief Complaint: Chest Pain Stated Complaint: Irregular heart rate Source: patient, RN notes reviewed Mode of arrival: ambulatory Limitations: no limitations - History of Present Illness Initial Comments: Quick note: This is a 53-year-old female with history of hypertension complaining of left upper chest heaviness (12/30) since [address] ates heart rate has been fluctuating wildly from 60s to 150s without known cause. Patient endorses associated pain between shoulder blades and presyncope sensation. Patient denies significant heart history. Endorses use of Xanax with no relief. MD Complaint: chest pain Time: 19:00 - Related Data Home Medications Medication Instructions Recorded Confirmed Cholecalciferol [Vitamin D3] 1,000 unit PO DAILY 04/30/15 03/24/18 Enalapril [Vasotec] 10 mg PO DAILY 09/11/17 03/24/18 Ibuprofen [Motrin Ib] 600 mg PO Q6H PRN 03/24/18 03/24/18 Previous Rx's Medication Instructions Recorded Ibuprofen [Motrin] 600 mg PO Q8HR PRN #20 tab 02/24/21 Ibuprofen [Motrin] 600 mg PO Q8HR PRN #20 tab 02/24/21 traMADol HCl [Ultram] 50 mg PO Q6H PRN #12 tab 02/24/21 traMADol HCl [Ultram] 50 mg PO Q6H PRN #12 tab 02/24/21 Famotidine [Pepcid] 20 mg PO DAILY 7 Days #7 tablet 08/11/22 HYDROcodone/APAP 5-325MG [Dexter 1 tab PO Q6HR PRN 3 Days #12 tab 08/11/22 5-325] Ondansetron Odt [Zofran Odt] 4 mg PO Q8HR PRN 2 Days #6 tab 08/11/22 Allergies Allergy/AdvReac Type Severity Reaction Status Date / Time amoxicillin Allergy Itching Verified 09/09/24 22:14 ciprofloxacin [From Cipro] Allergy Swelling Verified 09/09/24 22:14 codeine Allergy Rash/Hives Verified 09/09/24 22:14 metoclopramide HCl Allergy Rash/Hives Verified 09/09/24 22:14 [From Reglan] Review of Systems ROS Statement: Those systems with pertinent positive or pertinent negative responses have been documented in the HPI. ROS Other: All systems not noted in ROS Statement are negative. Past Medical History Past Medical History: Diabetes Mellitus, Hypertension Additional Past Medical History / Comment(s): pancreatitis. KIDNEY STONES History of Any Multi-Drug Resistant Organisms: None Reported Past Surgical History: Section, Cholecystectomy, Orthopedic Surgery, Ut erine Ablation Additional Past Surgical History / Comment(s): KIDNEY STONES REMOVED X4. LT SHOULDER MANIPULATION Past Anesthesia/Blood Transfusion Reactions: Motion Sickness, Postoperative Nausea & Vomiting (PONV) Past Psychological History: No Psychological Hx Reported Smoking Status: Former smoker Past Alcohol Use History: None Reported Past Drug Use History: None Reported - Past Family History Sister(s) Family Medical History: Cancer General Exam - General Exam Comments Initial Comments: Visual Physical Exam Vital signs reviewed General: Well-appearing, nontoxic, no acute distress. Head: Normocephalic, atraumatic Eyes: PERRLA, EOMI ENT: Airway patent Chest: Nonlabored breathing Skin: No visual rash, normal skin tone Neuro: Alert and oriented 3 Musculoskeletal: No gross abnormalities Limitations: no limitations Course Vital Signs 09/09/24 09/10/24 22:08 03:08 Temperature 98.3 F 98.3 F Pulse Rate 107 H 84 Respiratory 18 18 Rate Blood Pressure 192/107 161/89 O2 Sat by Pulse 98 95 Oximetry Chest Pain MDM - MDM Was pt. sent in by a medical professional or institution (MARCE Castañeda, MANAGER INSPECTION, urgent care, hospital, or alf...) When possible be specific @ -[No] Did you speak to anyone other than the patient for history (EMS, parent, family, police, friend...)? What history was obtained from this source @ -[No] Did you review nursing and triage notes (agree or disagree)? Why? @ -[I reviewed and agree with nursing and triage notes] Were old charts reviewed (outside hosp., previous admission, EMS record, old EKG, old radiological studies, urgent care reports/EKG's, alf records)? Report findings @ -[No old charts were reviewed] Differential Diagnosis (chest pain, altered mental status, abdominal pain women, abdominal pain men, vaginal bleeding, weakness, fever, dyspnea, syncope, headache, dizziness, GI bleed, back pain, seizure, CVA, palpatations, mental health, musculoskeletal)? @ -Differential Chest Pain: Stable Angina, Unstable Angina, STEMI, NSTEMI Aortic Dissection, Pneumothorax, Musculoskeletal, Esophageal Spasm GERD, Cholecystitis, Pancreatitis, Zoster, this is not meant to be an all-inclusive list. EKG interpreted by me (3pts min.). @ -Sinus rhythm without ST changes or T wave inversion. Ventricular rate 94 bpm, DACIA 156 ms, QRS duration 102 ms, QTc 407 ms. X-rays interpreted by me (1pt min.). @ -[None done] CT interpreted by me (1pt min.). @ -[None done] U/S interpreted by me (1pt. min.). @ -[None done] What testing was considered but not performed or refused? (CT, X-rays, U/S, labs)? Why? @ -[None] What meds were considered but not given or refused? Why? @ -[None] Did you discuss the management of the patient with other professionals (professionals i.e. , PA, MANAGER INSPECTION, lab, RT, psych nurse, family welfare social work professor, embosser apprentice, t eacher, targeting acquisition officer, classification case manager)? Give summary @ -[No] Was smoking cessation discussed for >3mins.? @ -[No] Was critical care preformed (if so, how long)? @ -[No] Were there social determinants of health that impacted care today? How? (Homelessness, low income, unemployed, alcoholism, drug addiction, transportation, low edu. Level, literacy, decrease access to med. care, residential, rehab)? @ -[No] Was there de-escalation of care discussed even if they declined (Discuss DNR or withdrawal of care, Hospice)? DNR status @ -[No] What co-morbidities impacted this encounter? (DM, HTN, Smoking, COPD, CAD, Cancer, CVA, ARF, Chemo, Hep., AIDS, mental health diagnosis, sleep apnea, morbid obesity)? @ -[None] Was patient admitted / discharged? Hospital course, mention meds given and route, prescriptions, significant lab abnormalities, going to OR and other pertinent info. @ -[hospital course] Undiagnosed new problem with uncertain prognosis? @ -[No] Drug Therapy requiring intensive monitoring for toxicity (Heparin, Nitro, Insulin, Cardizem)? @ -[No] Were any procedures done? @ -[No] Diagnosis/symptom? @ -Palpitations Acute, or Chronic, or Acute on Chronic? @ -Acute Uncomplicated (without systemic symptoms) or Complicated (systemic symptoms)? @ -Complicated Side effects of treatment? @ -[No] Exacerbation, Progression, or Severe Exacerbation? @ -[No] Poses a threat to life or bodily function? How? (Chest pain, [place], MS, pneumonia, PE, COPD, DKA, ARF, appy, cholecystitis, CVA, Diverticulitis, Homicidal, Suicidal, threat to staff... and all critical care pts) @ -[No] Disposition Clinical Impression: Palpitations Disposition: HOME SELF-CARE Condition: Good Instructions (If sedation given, give patient instructions): Heart Palpitations (ED) Additional Instructions: Follow-up with PCP/cardiology in next 24 to 48 hours. Is patient prescribed a controlled substance at d/c from ED?: No Referrals: Zain Mitchell MD [Primary Care Provider] - 1-2 days Time of Disposition: 03:05
[2024-09-10 02:58] LABS: Basophils # (A) 0.1 k/uL (0-0.2); Basophils % (A) 0 %; Eosinophils # (A) 0.1 k/uL (0-0.7); Eosinophils % (A) 1 %; HCT 48.8 % (34.0-46.0); HGB 15.7 gm/dL (11.4-16.0); Lymphocytes # (A) 2.2 k/uL (1.0-4.8); Lymphocytes % (A) 18 %; MCH 27.7 pg (25.0-35.0); MCHC 32.2 g/dL (31.0-37.0); MCV 85.9 fL (80.0-100.0); Mean Platelet Volume 10.2; Monocytes # (A) 0.6 k/uL (0-1.0); Monocytes % (A) 5 %; Neutrophils # (A) 9.1 k/uL (1.3-7.7); Neutrophils % (A) 75 %; Platelet Count 155 k/uL (150-450); RBC 5.68 m/uL (3.80-5.40); RDW 15.4 % (11.5-15.5); WBC 12.2 k/uL (3.8-10.6)
[2024-09-10 03:03] LABS: ALT 20 U/L (4-34); AST 19 U/L (14-36); African American GFR (CKD) >90 (>60 ml/min/1.73 sqM); Albumin 4.5 g/dL (3.5-5.0); Alkaline Phosphatase 68 U/L (38-126); Anion Gap 8 mmol/L; Blood Urea Nitrogen 17 mg/dL (7-17); Calcium 10.2 mg/dL (8.4-10.2); Carbon Dioxide 25 mmol/L (22-30); Chloride 106 mmol/L (98-107); Glucose 146 mg/dL (74-99); Non-African American GFR(CKD) >90 (>60 ml/min/1.73 sqM); Potassium 4.1 mmol/L (3.5-5.1); Sodium 139 mmol/L (137-145); Total Bilirubin 0.8 mg/dL (0.2-1.3); Total Protein 7.3 g/dL (6.3-8.2)
[2024-09-10 03:10] VITALS: BP 161/89; PULSE 84
[2024-09-10 03:10] LABS: INR 0.9 (<1.2); Partial Thromboplastin Time 23.5 sec (22.0-30.0)
== END 2024-09-10 03:49 | disposition home or self-care (01) ==
LOC: EC 21:57
DX: R00.2 Palpitations (principal); Z88.5 Allergy status to narcotic agent; Z88.1 Allergy status to other antibiotic agents; Z88.0 Allergy status to penicillin; Z88.8 Allergy status to other drugs, medicaments and biological substances; Z87.891 Personal history of nicotine dependence
CPT/HCPCS: 36415; 71046; 80053; 83735; 84484; 85025; 85610; 85730; 93005; 99285